=== PATIENT | female | born 1945 | race African-American/Black ===

== ENCOUNTER → 2017-01-16 | Outpatient (CLI) | payer OTHER | END | disposition home or self-care (01) | LOC: MA 13:28 | PROC: BH02ZZZ Plain Radiography of Bilateral Breasts (ICD-10-PCS; principal; 2017-01-16) | DX: Z12.31 Encounter for screening mammogram for malignant neoplasm of breast (principal) | CPT/HCPCS: G0202 ==

== ENCOUNTER 2018-02-22 20:43 | Inpatient (IN) | payer BC ==
[~2018-02-22] VITALS: Ht 162.6 cm; Wt 77.4 kg
[2018-02-22 20:45] VITALS: Ht 162.6 cm; Wt 77.4 kg
[2018-02-22 21:56] LABS: BASOPHIL % 0.4 % (0-2); PLATELET COUNT 279 x10^3mcL (130-400)
[2018-02-22 22:03] LABS: RED CELL DISTRIBUTION WIDTH 14.9 % (11.5-14.5)
[2018-02-22 22:25] LABS: CALCIUM 8.9 mg/dL (8.5-10.1); CARBON DIOXIDE 25.5 mmol/L (21-32); CHLORIDE SERUM 101 mmol/L (98-107); CREATININE SERUM 1.2 mg/dL (0.6-1.0); GLUCOSE SERUM 317 mg/dL (74-106); POTASSIUM SERUM 3.5 mmol/L (3.5-5.1); SODIUM SERUM 139 mmol/L (136-145)
[2018-02-22 22:29] LABS: ALBUMIN 3.6 g/dL (3.4-5.0); ALKALINE PHOSPHATASE 110 U/L (46-116); ALT/SGPT 23 U/L (14-59); AST/SGOT 21 U/L (15-37); BILIRUBIN TOTAL 0.2 mg/dL (0.20-1.00)
[2018-02-22 22:31] LABS: TOTAL PROTEIN, SERUM 8.5 g/dL (6.4-8.2)
[2018-02-22] MEDS ORDERED: SPIRONOLACTONE25 MG PO (23:48)
[2018-02-22] MEDS ORDERED: ENTRESTO1 TA2 (23:49)
[2018-02-22] MEDS ORDERED: NOR10 PO (23:49)
[2018-02-23] VITALS (8 sets, daily range): BP systolic 128–152; BP diastolic 50–74
[2018-02-23 01:35] LABS: MAGNESIUM 2.2 mg/dL (1.8-2.4); PHOSPHOROUS 4.3 mg/dL (2.5-4.9)
[2018-02-23 02:40] LABS: microscopic required? YES; urine erythrocyte NEGATIVE (NEGATIVE)
[2018-02-23 07:36] LABS: BASOPHIL % 0.2 % (0-2); PLATELET COUNT 240 x10^3mcL (130-400); RED CELL DISTRIBUTION WIDTH 14.4 % (11.5-14.5)
[2018-02-23 08:54] LABS: CALCIUM 8.4 mg/dL (8.5-10.1); CARBON DIOXIDE 27.3 mmol/L (21-32); CHLORIDE SERUM 103 mmol/L (98-107); CREATININE SERUM 1.1 mg/dL (0.6-1.0); GLUCOSE SERUM 97 mg/dL (74-106); POTASSIUM SERUM 3.9 mmol/L (3.5-5.1); SODIUM SERUM 138 mmol/L (136-145)
== END 2018-02-24 02:45 | disposition short-term general hospital (02) | DRG 280 ==
LOC: ED 20:43 → DU 22:52
PROVIDERS: Emergency Medicine; ADMIT Family Medicine
DX: I11.0 Hypertensive heart disease with heart failure (principal); J18.9 Pneumonia, unspecified organism; I21.4 Non-ST elevation (NSTEMI) myocardial infarction; J96.00 Acute respiratory failure, unspecified whether with hypoxia or hypercapnia; N17.0 Acute kidney failure with tubular necrosis; E87.2 Acidosis; I50.43 Acute on chronic combined systolic (congestive) and diastolic (congestive) heart failure; E11.65 Type 2 diabetes mellitus with hyperglycemia; R80.9 Proteinuria, unspecified; Z68.24 Body mass index [BMI] 24.0-24.9, adult
CPT/HCPCS: 36600; 83880; 87804; J1650; J1940; J1956; J7030; J7620; Q0092; Q9967